=== PATIENT | female | born 1975 | race Caucasian/White ===

== ENCOUNTER 2022-01-09 03:17 | Outpatient (CLI) | payer OTHER, SELFPAY ==
[2022-01-09 15:15] LABS: Source Nasal/Nares
[2022-01-09 17:12] LABS: COVID-19 PCR Negative (Negative)
--- NOTE | 2022-01-10 06:00 | DI.RAD_ITS ---
Exam(s) XR PAIN CLINIC LUMBAR SP 2V EXAM: XR PAIN CLINIC LUMBAR SP 2V CLINICAL HISTORY: Dx: Lumbar Radiculopathy. TECHNIQUE: Fluoroscopy was provided for the referring physician for guidance with performing injecti on procedure. COMPARISON: No exams were available for comparison FINDINGS: Please see procedure note for details. Fluoro time 31.0 seconds. RADIATION DOSE DELIVERED: cheyenne Mckenna=15.46 mGy
== END 2022-01-09 03:18 | disposition home or self-care (01) ==
LOC: LBO 03:17
PROVIDERS: PCP Nurse Practitioner Family; Visit Provider Preventive Medicine Occupational Medicine
DX: Z20.822 Contact with and (suspected) exposure to COVID-19 (principal); Z01.818 Encounter for other preprocedural examination
CPT/HCPCS: 87635

== ENCOUNTER 2022-01-10 08:29 | Outpatient (CLI) | payer OTHER, SELFPAY ==
[2022-01-10 08:39] VITALS: BP 134/104; PULSE 98; RESP 16; TEMP 36.6; O2SAT 97
--- NOTE | 2022-01-10 08:53 | PDOC.PAIN_ITS ---
Pain Clinic Procedure Note Procedure Note Procedure Note: Lumbar Epidural Steroid Injection Procedure Note COMMENTS: She was recently evaluated by neurosurgery at [facility]. They recommended this procedure. I did review her recent lumbar MRI (10/25/21). She has numbness in the left L5 distribution which comes on everyday after being on her feet for a while. She works at a [employer] and is on her feet 95% of her day. Dx: Lumbosacral radiculopathy Preprocedure pain VAS: 2/10. Trudy Lyn has been referred to the [facility] for lumbar epidural steroid injection. The patient was greeted by the nurse who verified patients name and . Patient was then taken to the fluoroscopy suite. The patient was interviewed and the medial record reviewed. There were no medical, pharmacologic, radiographic, or other structural contraindications to attempting fluoroscopically guided lumbar epidural steroid injection. Risks and expected side effects as well as potential benefits of the procedure were reviewed and voiced concerns expressed. The patient consent form was signed and witnessed. Standard patient time-out procedure was performed. The patient was placed in the prone position on the fluoroscopy table and automated blood pressure cuff and pulse oximeter applied. The skin entry point for entering/approaching the epidural space L5-S1 and marked. Following thorough chlorhexadine preparation of the skin and draping and 1% lidocaine infiltration of the skin entry point and subcutaneous tissues, a 18 gauge Touhy needle was placed under fluoroscopic guidance and with loss of resistance technique into the epidural space. Needle tip placement and depth were aided and confirmed by fluoroscopy. There was no paresthesia or return of blood or CSF through the needle. 1 cc's of Omnipaque 240 was injected with clear epidural spread confirmed with fluoroscopy. 80mg depomedrol was injected. There was not any unusual discomfort expressed by Trudy Lyn. Patient's vital signs were stable throughout the procedure and were as recorded in nursing records. Follow up plans and appointments were discussed with patient. Post procedure instruction was given as documented in nursing records and having met discharge criteria and was discharged from the [facility]. COMMENTS: If this procedure is helpful, it can be completed up to 3 times per 12 months. Post-procedure pain VAS: 0/10. Parvez Armstrong DO, MPH [facility]-Pain Management [facility]-Center for [facility] Management
[2022-01-10] MEDS: Omnipaque 240 MG/ML 50 ML BTL IJ (09:15)
[2022-01-10] MEDS: methylPREDNISolone ACETATE 80 MG/ML VIAL IJ (09:15)
[2022-01-10 09:28] VITALS: BP 133/90; PULSE 68; RESP 18
== END 2022-01-10 08:30 | disposition home or self-care (01) ==
PROVIDERS: PCP Nurse Practitioner Family; Visit Provider Preventive Medicine Occupational Medicine
DX: M54.17 Radiculopathy, lumbosacral region (principal)
CPT/HCPCS: 62323; 72100; J1040; Q9967